=== PATIENT | female | born 1970 | race Caucasian/White ===

== ENCOUNTER 2017-08-18 14:19 | Emergency (ER) | payer OTHER ==
[~2017-08-18] VITALS: Ht 154.9 cm; Wt 88.9 kg
[~2017-08-18 14:19] MED LIST: GABAPENTIN300 M2 PO; PERCOCET 5-3251 EACH PO; PROTONIX40 M3 PO; WAL-PROFEN200 M1 PO; ZOFRAN4 M2 PO
[2017-08-18 16:36] LABS: ABSOLUTE BASOPHIL COUNT 0 /CUMM (0.0-0.2); ABSOLUTE EOSINOPHIL COUNT 0.1 /CUMM (0.0-0.7); ABSOLUTE GRANULOCYTE CT 5.7 /CUMM (1.4-6.5); ABSOLUTE LYMPH COUNT 2.9 /CUMM (1.2-3.4); ABSOLUTE MONOCYTE COUNT 0.5 /CUMM (0.10-0.60); BASOPHIL % 0.5 % (0.0-2.0); EOSINOPHIL % 0.7 % (0-5); GRANULOCYTE % 62.1 % (42.2-75.2); HEMATOCRIT 40.1 % (37-47); MEAN CORPUSCULAR HGB 28.7 PG (27.0-31.0); MEAN CORPUSCULAR HGB CONC 33.7 G/DL (33.0-37.0); MEAN CORPUSCULAR VOLUME 85.1 FL (81.0-99.0); MEAN PLATELET VOLUME 9.6 FL (7.4-10.4); PLATELET COUNT 253 /CUMM (130-400); RBC DISTRIBUTION WIDTH 13.7 % (11.5-14.5); RED BLOOD CELL CT 4.72 /CUMM (4.20-5.40); WHITE BLOOD CELL COUNT 9.2 /CUMM (4.8-10.8)
[2017-08-18 17:47] VITALS: BP 138/64
--- NOTE | 2017-08-18 19:17 | ULTRASOUND REPORT ---
EXAMINATION: US RETROPERITONEAL COMPLETE (RENAL) CLINICAL INFORMATION: Right flank pain. History of stones.. COMPARISON: Radiograph 07/24/2017. TECHNIQUE: Real-time imaging of the kidneys and bladder. FINDINGS: RIGHT KIDNEY: 11.5 x 5.5 x 5.7 cm (SAG x AP x TRV). The kidney is normal in size, contour, and echogenicity. There is renal cortical thinning. No hydronephrosis. There is a lower pole simple cyst measuring 2.6 cm. There are multiple calculi noted. The largest is seen at the midpole measuring 1.3 x 0.6 x 0.8 cm. There is a lower pole calculus measuring 0.9 cm. There is a 0.7 cm lower pole calculus. LEFT KIDNEY: 1.2 x 5.4 x 5.3 cm (SAG x AP x TRV). The kidney is normal in size, contour, and echogenicity. Renal cortical thickness is normal. No calculi or focal parenchymal lesions. No hydronephrosis. BLADDER: Well-distended and normal. Bilateral ureteral jets are demonstrated. Prevoid bladder volume is 217 mL. Postvoid bladder volume is 11 mL. IMPRESSION: No hydronephrosis. Multiple nonobstructing right renal calculi. Right renal cyst..
--- NOTE | 2017-08-18 19:22 | ED GI/GU/ABDOMINAL COMPLAINT ---
History of Present Illness General Chief Complaint: General Adult Stated Complaint: ?KIDNEY STONES,"I FEEL COLD" Source: patient Exam Limitations: no limitations Vital Signs & Intake/Output Vital Signs & Intake/Output Vital Signs Date Time Temp Pulse Resp B/P B/P Pulse O2 O2 Flow FiO2 Mean Ox Delivery Rate 08/18 1747 98.2 87 18 138/64 97 Room Air 08/18 1440 97.4 90 16 127/84 95 Room Air Allergies Coded Allergies: oxycodone (palpatations 02/24/17) Reconcile Medications Cephalexin (Keflex) 500 MG CAPSULE 1 CAP PO TID UTI Lidocaine HCl (Lidocaine HCl Viscous) 2 % SOLUTION 15 ML PO 4 TIMES/DAY PRN MOUTH PAIN SWISH AND SPIT Pantoprazole Sodium (Protonix) 40 MG TABLET.DR 1 TAB PO DAILY ABDOMINAL PAIN Triage Note: PT TO ED FOR ?FEVER AND AND R SIDED FLANK PAIN "WAITING FOR SUGERY FOR KIDNEY STONE" PT AWAKE/ALERT WITH EASY WOB. PT AFEBRILE IN TRIAGE. REPORTS "FEELING COLD" Triage Nurses Notes Reviewed? yes LMP (ages 10-50): unknown ? n Is pt currently ? No Onset: Abrupt Duration: changing over time, continues in ED Timing: recent history Quality/Severity: cramping Severity Numbers: 7 Location: right flank Radiation: back Activities at Onset: none Prior Abdominal Problems: similar symptoms Past Sexual History: Unobtainable at this time No Modifying Factors: none Modifying Factors: Worsens With: movement, palpation. Associated Symptoms: abdominal pain, nausea/vomiting HPI: 46-year-old female past medical history of nephrolithiasis presents for evaluation of pain in her right flank and nausea. Patient states that the symptoms are present for the past 3 weeks since she was diagnosed with a kidney stone on that right side. She states that she is scheduled to have a procedure to remove the stones this coming week. She states that her pain had initially been improving but worsened again today. The pain is located in the right flank radiates into the right lower back. Described as cramping. Associated with nausea. No chest pain shortness of breath no abdominal pain. No fever but she does report chills. She's not taking any medicine for this currently. Past History Travel History Traveled to [place] past 21 day No Medical History Any Pertinent Medical History? see below for history Neurological: NONE EENT: NONE Cardiovascular: NONE Respiratory: NONE Gastrointestinal: NONE Hepatic: NONE Renal: KIDNEY STONES Musculoskeletal: NEUROPATHY Psychiatric: NONE Endocrine: NONE Surgical History Surgical History: non-contributory Psychosocial History What is your primary language Bahamian Tobacco Use: Refused to answer Family History Hx Contributory? No Review of Systems Review of Systems Constitutional: Reports: no symptoms. EENTM: Reports: no symptoms. Respiratory: Reports: no symptoms. Cardiovascular: Reports: no symptoms. GI: Reports: see HPI, abdominal pain (flank pain). Genitourinary: Reports: no symptoms. Musculoskeletal: Reports: see HPI, back pain. Skin: Reports: no symptoms. Neurological/Psychological: Reports: no symptoms. Hematologic/Endocrine: Reports: no symptoms. Immunologic/Allergic: Reports: no symptoms. All Other Systems: Reviewed and Negative Physical Exam Physical Exam General Appearance: well developed/nourished, no apparent distress, alert, awake Head: atraumatic, normal appearance Eyes: Bilateral: normal appearance, PERRL, EOMI, normal inspection. Ears, Nose, Throat, Mouth: hearing grossly normal, moist mucous membrane Neck: normal inspection, supple, full range of motion Respiratory: normal breath sounds, chest non-tender, no respiratory distress, lungs clear Cardiovascular: regular rate/rhythm, normal peripheral pulses Peripheral Pulses: 2+ radial (R), 2+ radial (L) Gastrointestinal: normal bowel sounds, soft, no organomegaly, tenderness (rt flank) Back: normal inspection, normal range of motion, no vertebral tenderness, rt lower back pain to palpation. no cvat. no midline pain Extremities: normal range of motion Neurologic/Psych: no motor/sensory deficits, awake, alert, oriented x 3, normal gait Skin: intact, normal color, warm/dry Core Measures ACS in differential dx? No Sepsis Present: No Sepsis Focused Exam Completed? No Progress Differential Diagnosis: appendicitis Plan of Care: Orders Procedure Date/time Status Add-on Test (ER Only) 08/18 1922 Active COMPREHENSIVE METABOLIC PANEL 08/18 1535 Complete CBC WITHOUT DIFFERENTIAL 08/18 1535 Complete CULTURE,URINE 08/18 1458 Active URINALYSIS 08/18 1445 Complete Laboratory Tests 08/18/17 1547: Anion Gap 13, Estimated GFR > 60, BUN/Creatinine Ratio 11.3, Glucose 93, Calcium 9.7, Total Bilirubin 0.8, AST 19, ALT 27, Alkaline Phosphatase 43, Total Protein 7.8, Albumin 4.7, Globulin 3.1, Albumin/Globulin Ratio 1.5, CBC w Diff NO MAN DIFF REQ, RBC 4.72, MCV 85.1, MCH 28.7, MCHC 33.7, RDW 13.7, MPV 9.6, Gran % 62.1, Lymphocytes % 31.5, Monocytes % 5.2, Eosinophils % 0.7, Basophils % 0.5, Absolute Granulocytes 5.7, Absolute Lymphocytes 2.9, Absolute Monocytes 0.5, Absolute Eosinophils 0.1, Absolute Basophils 0 08/18/17 1458: Urine Color STRAW, Urine Clarity CLEAR, Urine pH 6.0, Ur Specific Ray <= 1.005, Urine Protein NEG, Urine Ketones NEG, Urine Nitrite NEG, Urine Bilirubin NEG, Urine Urobilinogen 0.2, Ur Leukocyte Esterase MOD H, Ur Microscopic SEDIMENT EXAMINED, Urine RBC RARE, Urine WBC 1-3 H, Urine Hemoglobin TRACE- INTACT, Urine Glucose NEG Microbiology 08/18 1458 URINE ROUT: Urine Culture - RECD Patient seen and evaluated. She is reporting chills and continued right flank pain. Urine is showing some signs of infection blood work is within normal limits. Advised patient should repeat a CT scan however she declines. She requests an ultrasound instead. Ultrasound shows similar appearance of kidney stones. She is following up with Dr. Joy this week for surgical intervention. Patient's pain is well-controlled she is tolerating fluids. She' ll be placed back on cephalexin for treatment of possible UTI/Samson. Advised rest and clear fluids continue Flomax follow-up with urology. Tylenol ibuprofen as needed for pain monitor symptoms return with any concerns Diagnostic Imaging: Viewed by Me: Ultrasound. Discussed w/RAD: Ultrasound. Radiology Impression: PATIENT: JANA BENITEZ PRESENT AGE : 46 PATIENT ACCOUNT NO: [id number] : 68 LOCATION: [facility] ORDERING PHYSICIAN: Faheem BISHOP SERVICE DATE: 08/18/17 EXAM TYPE: US - US- RENAL/KIDNEY EXAMINATION: US RETROPERITONEAL COMPLETE (RENAL) CLINICAL INFORMATION: Right flank pain. History of stones.. COMPARISON: Radiograph 2017. TECHNIQUE: Real-time imaging of the kidneys and bladder. FINDINGS: RIGHT KIDNEY: 11.5 x 5.5 x 5.7 cm (SAG x AP x TRV). The kidney is normal in size, contour, and echogenicity. There is renal cortical thinning. No hydronephrosis. There is a lower pole simple cyst measuring 2.6 cm. There are multiple calculi noted. The largest is seen at the midpole measuring 1.3 x 0.6 x 0.8 cm. There is a lower pole calculus measuring 0.9 cm. There is a 0.7 cm lower pole calculus. LEFT KIDNEY: 1.2 x 5.4 x 5.3 cm (SAG x AP x TRV). The kidney is normal in size, contour, and echogenicity. Renal cortical thickness is normal. No calculi or focal parenchymal lesions. No hydronephrosis. BLADDER: Well-distended and normal. Bilateral ureteral jets are demonstrated. Prevoid bladder volume is 217 mL. Postvoid bladder volume is 11 mL. IMPRESSION: No hydronephrosis. Multiple nonobstructing right renal calculi. Right renal cyst.. DICTATED BY: Hamilton SCHWARZ,Alex DATE/TIME DICTATED:08/18/171910 DOPE DRY HOUSE OPERATOR:TOÑITO DATE/ TIME TRANSCRIBED:08/18/171910 CONFIDENTIAL, DO NOT COPY WITHOUT APPROPRIATE AUTHORIZATION. Initial ED EKG: none Departure Departure Disposition: HOME OR SELF CARE Condition: Stable Clinical Impression Primary Impression: Renal colic on right side Referrals: Staice Ledezma DO (PCP/Family) Dejuan SCHWARZ,Leandro Prater. Additional Instructions: Take antibiotics as directed for the full course. Increase fluids. Tylenol ibuprofen as needed for pain. Viscous lidocaine to be used as needed for mouth pain. Make a follow-up with her primary care doctor and urologist Dr. Nelson soon as possible. Monitor symptoms return with any concerns. Departure Forms: Customer Survey General Discharge Information Prescriptions: Current Visit Scripts Cephalexin (Keflex) 1 CAP PO TID #21 CAP Lidocaine HCl (Lidocaine HCl Viscous) 15 ML PO 4 TIMES/DAY PRN MOUTH PAIN #100 ML SWISH AND SPIT
[2017-08-18] MEDS ORDERED: KEFLEX500 M1 PO (19:30)
[2017-08-18] MEDS ORDERED: LIDOCAINE HCL V15 ML PO (19:30)
== END 2017-08-18 19:47 ==
LOC: ERH 14:19
PROVIDERS: Physician Assistant Medical
DX: N23 Unspecified renal colic (principal)
CPT/HCPCS: 76775; 81001; 87086; 96372; J1885

== ENCOUNTER 2017-09-09 19:01 | Emergency (ER) | payer OTHER ==
[~2017-09-09] VITALS: Ht 154.9 cm; Wt 87.5 kg
[~2017-09-09 19:01] MED LIST changes: +KEFLEX500 M1 PO; +LIDOCAINE HCL V15 ML PO
--- NOTE | 2017-09-09 19:09 | ED DYSPNEA/ASTHMA COMPLAINT ---
History of Present Illness General Chief Complaint: Dyspnea (COPD, CHF, Other) Stated Complaint: DYSPNEA/CHEST TIGHTNESS Source: patient Exam Limitations: no limitations Vital Signs & Intake/Output Vital Signs & Intake/Output Vital Signs Date Time Temp Pulse Resp B/P B/P Pulse O2 O2 Flow FiO2 Mean Ox Delivery Rate 09/09 2246 98.2 107 18 119/57 96 Room Air 09/09 2052 98.0 114 18 145/67 99 Room Air 09/09 2000 97 Room Air 09/09 1907 97.9 106 18 152/97 99 Room Air Allergies Coded Allergies: oxycodone (palpatations 02/24/17) Reconcile Medications Albuterol Sulfate (Ventolin Hfa) 90 MCG HFA.AER.AD 2 PUF INH Q4-6 PRN PRN WHEEZE Cephalexin (Keflex) 500 MG CAPSULE 1 CAP PO TID UTI Lidocaine HCl (Lidocaine HCl Viscous) 2 % SOLUTION 15 ML PO 4 TIMES/DAY PRN MOUTH PAIN SWISH AND SPIT Pantoprazole Sodium (Protonix) 40 MG TABLET.DR 1 TAB PO DAILY ABDOMINAL PAIN Prednisone 50 MG TABLET 1 TAB PO DAILY BRONCHOSPASM/BREATHING ISSUES Triage Nurses Notes Reviewed? yes Onset: Gradual Duration: day(s): Timing: recent history Severity: mild, moderate Activities at Onset: none Prior Episodes/Possible Cause: no prior episodes Associated Symptoms: fatigue HPI: 46 yo woman h/o dyspnea x 2-3 days, associated with diffuse myalgia, increased fatigue, mild diarrhea intermittently, occasional right sided chest pain. She has seen her physician providers recently and is scheduled to have a breast biopsy and a kidney stone on the right taken care of. She notes no fever, chills, nausea, vomiting, headache, fever. He is otherwise well. Past History Travel History Traveled to [place] past 21 day No Medical History Any Pertinent Medical History? see below for history Neurological: NONE EENT: NONE Cardiovascular: NONE Respiratory: NONE Gastrointestinal: NONE Hepatic: NONE Renal: KIDNEY STONES Musculoskeletal: NEUROPATHY Psychiatric: NONE Endocrine: NONE Surgical History Surgical History: non-contributory Psychosocial History What is your primary language Sami Tobacco Use: Never used Family History Hx Contributory? No Review of Systems Review of Systems Constitutional: Reports: no symptoms. EENTM: Reports: no symptoms. Respiratory: Reports: no symptoms. Cardiovascular: Reports: no symptoms. GI: Reports: no symptoms. Genitourinary: Reports: no symptoms. Musculoskeletal: Reports: no symptoms. Skin: Reports: no symptoms. Neurological/Psychological: Reports: no symptoms. Hematologic/Endocrine: Reports: no symptoms. Immunologic/Allergic: Reports: no symptoms. All Other Systems: Reviewed and Negative Physical Exam Physical Exam General Appearance: well developed/nourished, no apparent distress Head: atraumatic, normal appearance Eyes: Bilateral: normal appearance. Ears, Nose, Throat: normal pharynx, normal ENT inspection Neck: normal inspection, supple, full range of motion Respiratory: mild wheeze, parasternal chest wall tenderness to palpation Cardiovascular: regular rate/rhythm Gastrointestinal: normal bowel sounds, soft, non-tender Extremities: normal inspection Neurologic/Psych: no motor/sensory deficits, awake, alert, oriented x 3 Skin: intact, normal color, warm/dry Core Measures ACS in differential dx? No CVA/TIA Diagnosis No Sepsis Present: No Sepsis Focused Exam Completed? No Progress Differential Diagnosis: asthma, bronchitis, COPD, pneumonia Plan of Care: Orders Procedure Date/time Status TROPONIN LEVEL 09/09 2116 Complete EKG 09/09 2116 Active THYROID STIMULATING HORMONE 09/09 1929 Complete TROPONIN LEVEL 09/09 1908 Complete LIPASE 09/09 1908 Complete HEPATIC FUNCTION PANEL 09/09 1908 Complete D-DIMER 09/09 1908 Complete CBC WITHOUT DIFFERENTIAL 09/09 1908 Complete BASIC METABOLIC PANEL 09/09 1908 Complete AMYLASE 09/09 1908 Complete EKG 09/09 1908 Active Laboratory Tests 09/09/17 2130: Troponin I < 0.01 09/09/17 1930: Anion Gap 16, Estimated GFR > 60, BUN/Creatinine Ratio 16.3, Glucose 109 H, Calcium 10.4 H, Total Bilirubin 0.7, Direct Bilirubin 0.4, AST 21, ALT 32, Alkaline Phosphatase 50, Troponin I < 0.01, Total Protein 7.8, Albumin 4.9, Amylase 61, Lipase 112, TSH 1.810, D-Dimer High Sensitivty < 200, CBC w Diff NO MAN DIFF REQ, RBC 4.66, MCV 84.6, MCH 28.5, MCHC 33.6, RDW 13.5, MPV 9.4, Gran % 61.8, Lymphocytes % 31.7, Monocytes % 4.6, Eosinophils % 1.3, Basophils % 0.6, Absolute Granulocytes 5.3, Absolute Lymphocytes 2.7, Absolute Monocytes 0.4, Absolute Eosinophils 0.1, Absolute Basophils 0.1 09/09/17 1923: TSH Cancelled CXR Impression: PATIENT: JANA BENITEZ PRESENT AGE: 46 PATIENT ACCOUNT NO: [id number] : 66 LOCATION: [facility] ORDERING PHYSICIAN: Keon Benz MD SERVICE DATE: 09/09/17 EXAM TYPE: RAD - XRY- PORTABLE CHEST XRAY EXAMINATION: XR PORTABLE CHEST CLINICAL INFORMATION: Chest pain. COMPARISON: None TECHNIQUE: Portable frontal view of the chest was obtained. FINDINGS: The lungs are clear. No pleural effusion. 2 wires overlie the patient. Cardiomediastinal silhouette and pulmonary vasculature are within normal limits. No acute osseous finding. IMPRESSION: No acute cardiopulmonary disease. DICTATED BY: Juan Calhoun MD DATE/TIME DICTATED:09/09/172005 PAINT LINE SUPERVISOR:TOÑITO DATE/TIME TRANSCRIBED:09/09/172005 CONFIDENTIAL, DO NOT COPY WITHOUT APPROPRIATE AUTHORIZATION. <Electronically signed in Other Vendor System> SIGNED BY: Juan Calhoun MD 09/09/172009 Initial ED EKG: LBBB, sinus lbbb, prior ekg lbbb Repeat EKG: unchanged Departure Departure Disposition: HOME OR SELF CARE Condition: Stable Clinical Impression Primary Impression: Bronchospasm Secondary Impressions: Fatigue, Viral syndrome Referrals: Stacie Ledezma DO (PCP/Family) Departure Forms: Customer Survey General Discharge Information Prescriptions: Current Visit Scripts Prednisone 1 TAB PO DAILY #5 TAB Albuterol Sulfate (Ventolin Hfa) 2 PUF INH Q4-6 PRN PRN WHEEZE #1 INHAL Ref 1 Comments 09/09/17, 22:45... pt feeling well, stable in ed... labs/ekg/trop benign... pt safe for discharge... close follow up advised Critical Care Note Critical Care Note Critical Care Time: non-applicable
[2017-09-09 19:48] LABS: ABSOLUTE BASOPHIL COUNT 0.1 /CUMM (0.0-0.2); ABSOLUTE EOSINOPHIL COUNT 0.1 /CUMM (0.0-0.7); ABSOLUTE GRANULOCYTE CT 5.3 /CUMM (1.4-6.5); ABSOLUTE LYMPH COUNT 2.7 /CUMM (1.2-3.4); ABSOLUTE MONOCYTE COUNT 0.4 /CUMM (0.10-0.60); BASOPHIL % 0.6 % (0.0-2.0); EOSINOPHIL % 1.3 % (0-5); GRANULOCYTE % 61.8 % (42.2-75.2); HEMATOCRIT 39.5 % (37-47); MEAN CORPUSCULAR HGB 28.5 PG (27.0-31.0); MEAN CORPUSCULAR HGB CONC 33.6 G/DL (33.0-37.0); MEAN CORPUSCULAR VOLUME 84.6 FL (81.0-99.0); MEAN PLATELET VOLUME 9.4 FL (7.4-10.4); PLATELET COUNT 258 /CUMM (130-400); RBC DISTRIBUTION WIDTH 13.5 % (11.5-14.5); RED BLOOD CELL CT 4.66 /CUMM (4.20-5.40); WHITE BLOOD CELL COUNT 8.6 /CUMM (4.8-10.8)
--- NOTE | 2017-09-09 20:10 | RADIOLOGY REPORT ---
EXAMINATION: XR PORTABLE CHEST CLINICAL INFORMATION: Chest pain. COMPARISON: None TECHNIQUE: Portable frontal view of the chest was obtained. FINDINGS: The lungs are clear. No pleural effusion. 2 wires overlie the patient. Cardiomediastinal silhouette and pulmonary vasculature are within normal limits. No acute osseous finding. IMPRESSION: No acute cardiopulmonary disease.
[2017-09-09] MEDS ORDERED: PREDNISONE50 M1 PO (21:19)
[2017-09-09] MEDS ORDERED: VENTOLIN HFA18 GM INH (21:19)
[2017-09-09 22:47] VITALS: BP 119/57
[2017-09-10] MEDS ORDERED: CLARITIN10 M1 PO (20:19)
== END 2017-09-09 23:06 ==
LOC: ERH 19:01
PROVIDERS: Pediatrics
DX: J98.01 Acute bronchospasm (principal); B34.9 Viral infection, unspecified; R53.83 Other fatigue; R07.9 Chest pain, unspecified
CPT/HCPCS: 1263; 71045; 93005; 93010; 96361; 96374; 96375; J1885; J2930

== ENCOUNTER 2017-09-10 19:02 | Emergency (ER) | payer OTHER ==
[~2017-09-10] VITALS: Ht 154.9 cm; Wt 87.5 kg
[~2017-09-10 19:02] MED LIST changes: +PREDNISONE50 M1 PO; +VENTOLIN HFA18 GM INH
[2017-09-10 19:08] VITALS: BP 137/80
--- NOTE | 2017-09-10 19:33 | ED GENERAL ADULT ---
History of Present Illness General Chief Complaint: General Adult Stated Complaint: "FOLLOW UP W/ ABD PAIN, BROOKS, RED FACE" Source: patient Exam Limitations: no limitations Vital Signs & Intake/Output Vital Signs & Intake/Output Vital Signs Date Time Temp Pulse Resp B/P B/P Pulse O2 O2 Flow FiO2 Mean Ox Delivery Rate 09/11 1907 97.8 103 18 137/80 99 Room Air Allergies Coded Allergies: gabapentin (BROOKS, DRY TONGUE 09/10/17) oxycodone (palpatations 02/24/17) Reconcile Medications Albuterol Sulfate (Ventolin Hfa) 90 MCG HFA.AER.AD 2 PUF INH Q4-6 PRN PRN WHEEZE Cephalexin (Keflex) 500 MG CAPSULE 1 CAP PO TID UTI Lidocaine HCl (Lidocaine HCl Viscous) 2 % SOLUTION 15 ML PO 4 TIMES/DAY PRN MOUTH PAIN SWISH AND SPIT Loratadine (Claritin) 10 MG TABLET 1 TAB PO DAILY seasonal allergies Pantoprazole Sodium (Protonix) 40 MG TABLET.DR 1 TAB PO DAILY ABDOMINAL PAIN Prednisone 50 MG TABLET 1 TAB PO DAILY BRONCHOSPASM/BREATHING ISSUES Triage Note: PT FROM HOME C/O "F/U PER DR LO" PT WAS SEEN HERE YESTERDAY IN ED. PT WAS TOOK TO COME BACK AND F/U WITH DR LO. PTS VSS. PT STATES "I THINK IM ALLERGIC TO GABAPENTIN I TOOK IT TODAY AND AGAIN I FELT FLUSHED IN MY FACE, BROOKS, AND DRY MOUTH" Triage Nurses Notes Reviewed? yes Onset: Gradual Duration: hour(s): Timing: recent history Injury Environment: home Severity: mild Modifying Factors: Improves With: rest. Associated Symptoms: dry mouth HPI: 46 yo woman here for follow up from last night where she had a constellation of symptoms. She reports that she has been feeling well, without chest pain, dyspnea, dizziness. She notes that this evening, she took neurontin for her chronic lower back pain. She then developed a dry mouth and her face felt flushed. She is now feeling better. She notes also that with the spring, she has had intermittent runny nose and red face. She would like a medicine to help with this. She is otherwise well. Past History Travel History Traveled to [place] past 21 day No Medical History Any Pertinent Medical History? see below for history Neurological: NONE EENT: NONE Cardiovascular: NONE Respiratory: NONE Gastrointestinal: NONE Hepatic: NONE Renal: KIDNEY STONES Musculoskeletal: NEUROPATHY Psychiatric: NONE Endocrine: NONE Surgical History Surgical History: non-contributory Psychosocial History What is your primary language [place] Tobacco Use: Never used Family History Hx Contributory? No Review of Systems Review of Systems Constitutional: Reports: no symptoms. EENTM: Reports: no symptoms. Respiratory: Reports: no symptoms. Cardiovascular: Reports: no symptoms. GI: Reports: no symptoms. Genitourinary: Reports: no symptoms. Musculoskeletal: Reports: no symptoms. Skin: Reports: no symptoms. Neurological/Psychological: Reports: no symptoms. Hematologic/Endocrine: Reports: no symptoms. Immunologic/Allergic: Reports: no symptoms. All Other Systems: Reviewed and Negative Physical Exam Physical Exam General Appearance: well developed/nourished, no apparent distress, alert, comfortable Head: atraumatic, normal appearance Eyes: Bilateral: normal appearance. Ears, Nose, Throat: normal pharynx, normal ENT inspection Neck: normal inspection, supple, full range of motion Respiratory: normal breath sounds, chest non-tender, no respiratory distress, quiet respiration, lungs clear Cardiovascular: regular rate/rhythm Gastrointestinal: normal bowel sounds, soft, non-tender, no organomegaly Back: normal inspection, normal range of motion Extremities: normal inspection, normal capillary refill, normal range of motion, no edema Neurologic/Psych: no motor/sensory deficits, awake, alert, oriented x 3 Skin: intact, normal color, warm/dry Core Measures ACS in differential dx? No CVA/TIA Diagnosis: No Sepsis Present: No Sepsis Focused Exam Completed? No Progress Differential Diagnoses I considered the following diagnoses in my evaluation of the patient: medication side effect vs seasonal allergies vs other. Plan of Care: discussed at length, reviewed prior labs and imaging... pt is feeling better... I advised her to cease the neurontin, try claritin for seasonal allergies and follow up with her doctor tomorrow. Initial ED EKG: none Departure Departure Disposition: HOME OR SELF CARE Condition: Stable Clinical Impression Primary Impression: Medication side effects Secondary Impressions: Seasonal allergies Referrals: Stacie Ledezma DO (PCP/Family) Departure Forms: Customer Survey General Discharge Information Prescriptions: Current Visit Scripts Loratadine (Claritin) 1 TAB PO DAILY #30 TAB Critical Care Note Critical Care Note Critical Care Time: non-applicable
[2017-09-10] MEDS ORDERED: CLARITIN10 M1 PO (20:19)
== END 2017-09-10 20:24 ==
LOC: ERH 19:02
DX: T42.75XA Adverse effect of unspecified antiepileptic and sedative-hypnotic drugs, initial encounter (principal); J30.2 Other seasonal allergic rhinitis

== ENCOUNTER 2017-09-14 18:20 | Emergency (ER) | payer OTHER ==
[~2017-09-14 18:20] MED LIST changes: +CLARITIN10 M1 PO
[2017-09-14 19:33] LABS: ABSOLUTE BASOPHIL COUNT 0 /CUMM (0.0-0.2); ABSOLUTE EOSINOPHIL COUNT 0 /CUMM (0.0-0.7); ABSOLUTE GRANULOCYTE CT 6.8 /CUMM (1.4-6.5); ABSOLUTE LYMPH COUNT 2.2 /CUMM (1.2-3.4); ABSOLUTE MONOCYTE COUNT 0.4 /CUMM (0.10-0.60); BASOPHIL % 0.5 % (0.0-2.0); EOSINOPHIL % 0.5 % (0-5); HEMATOCRIT 39.6 % (37-47); MEAN CORPUSCULAR HGB 28.5 PG (27.0-31.0); MEAN CORPUSCULAR HGB CONC 33.5 G/DL (33.0-37.0); MEAN CORPUSCULAR VOLUME 84.9 FL (81.0-99.0); MEAN PLATELET VOLUME 9.2 FL (7.4-10.4); PLATELET COUNT 277 /CUMM (130-400); RBC DISTRIBUTION WIDTH 13.6 % (11.5-14.5); RED BLOOD CELL CT 4.66 /CUMM (4.20-5.40); WHITE BLOOD CELL COUNT 9.5 /CUMM (4.8-10.8)
--- NOTE | 2017-09-14 20:28 | ED GI/GU/ABDOMINAL COMPLAINT ---
History of Present Illness General Chief Complaint: General Adult Stated Complaint: MULTIPLE COMPLAINTS? Source: patient, family, old records Exam Limitations: language barrier Vital Signs & Intake/Output Vital Signs & Intake/Output Vital Signs Date Time Temp Pulse Resp B/P B/P Pulse O2 O2 Flow FiO2 Mean Ox Delivery Rate 09/15 2047 97.8 88 16 134/76 97 Room Air 09/15 1855 97.6 103 16 136/81 99 Room Air Allergies Coded Allergies: gabapentin (BROOKS, DRY TONGUE 09/10/17) oxycodone (palpatations 02/24/17) Reconcile Medications Albuterol Sulfate (Ventolin Hfa) 90 MCG HFA.AER.AD 2 PUF INH Q4-6 PRN PRN WHEEZE Cephalexin (Keflex) 500 MG CAPSULE 1 CAP PO TID UTI Lidocaine HCl (Lidocaine HCl Viscous) 2 % SOLUTION 15 ML PO 4 TIMES/DAY PRN MOUTH PAIN SWISH AND SPIT Loratadine (Claritin) 10 MG TABLET 1 TAB PO DAILY seasonal allergies [MAGIC MOUTHWASH] 10 ML PO TID PRN ESOPHAGITIS 1:1:1 EQUAL PARTS SWISH AND SWALLOW Pantoprazole Sodium (Protonix) 40 MG TABLET.DR 1 TAB PO DAILY ABDOMINAL PAIN Prednisone 50 MG TABLET 1 TAB PO DAILY BRONCHOSPASM/BREATHING ISSUES Triage Note: PT RETURNS TO ED WITH C/O MID ABD PAIN. REPORTS SHE BELIEVES IT MAY BE GAS OR GERD. DENIES NV. C/O PAIN IN EPIGASTRIC AREA. Triage Nurses Notes Reviewed? yes ? N Is pt currently ? No Duration: constant Timing: recent history Quality/Severity: moderate Severity Numbers: 5 Location: epigastric Radiation: no radiation Activities at Onset: none Prior Abdominal Problems: similar symptoms HPI: Patient is a 46-year-old female who presents emergency room with a two-week complaint of substernal burning and epigastric pain which she was then evaluated on multiple occasions with [facility] urgent care facility for similar complaints. Patient is able tolerate by mouth upon with no change in symptoms. Patient is complaining of burning sensation in her throat. Denies any fever chills arm pain jaw pain nausea vomiting dysuria and hematuria back pain Patient denies any alcohol and NSAIDs use Last bowel movement was within last 24 hours no blood no melena Patient currently is taking pantoprazole prescribed yesterday (Narendra De Jesus) Past History Travel History Traveled to [place] past 21 day No Medical History Any Pertinent Medical History? see below for history Neurological: NONE EENT: NONE Cardiovascular: NONE Respiratory: NONE Gastrointestinal: NONE Hepatic: NONE Renal: KIDNEY STONES Musculoskeletal: NEUROPATHY Psychiatric: NONE Endocrine: NONE Surgical History Surgical History: non-contributory Psychosocial History What is your primary language Malian Tobacco Use: Never used Family History Hx Contributory? No (Narendra De Jesus) Review of Systems Review of Systems Constitutional: Reports: no symptoms. EENTM: Reports: no symptoms. Respiratory: Reports: see HPI. Cardiovascular: Reports: see HPI. GI: Reports: no symptoms. Genitourinary: Reports: no symptoms. Musculoskeletal: Reports: no symptoms. Skin: Reports: no symptoms. Neurological/Psychological: Reports: no symptoms. Hematologic/Endocrine: Reports: no symptoms. Immunologic/Allergic: Reports: no symptoms. All Other Systems: Reviewed and Negative (Narendra De Jesus) Physical Exam Physical Exam General Appearance: no apparent distress, alert, comfortable Head: atraumatic Eyes: Bilateral: normal appearance. Ears, Nose, Throat, Mouth: hearing grossly normal, moist mucous membrane Neck: normal inspection, full range of motion Respiratory: normal breath sounds, chest non-tender, no respiratory distress Cardiovascular: tachycardia Gastrointestinal: normal bowel sounds, soft, non-tender, no organomegaly Extremities: normal range of motion Neurologic/Psych: no motor/sensory deficits Skin: intact, normal color Core Measures ACS in differential dx? Yes Sepsis Present: No Sepsis Focused Exam Completed? No (Narendra De Jesus) Progress Differential Diagnosis: AAA, AMI, appendicitis, biliary colic, bowel obstruction , colon cancer, cholecystitis, diverticulitis, esophageal varices, gastritis, hepatitis, inflamm bowel dis, kidney stone, Rae-Blas tear, ovarian cyst, ovarian torsion, pancreatitis, PID/cervicitis, peptic ulcer, PUD/GERD, perforated viscous, SBO, threatened AB, UTI/pyelo Plan of Care: Orders Procedure Date/time Status URINALYSIS 09/14 1902 Complete TROPONIN LEVEL 09/14 1902 Complete LIPASE 09/14 1902 Complete D-DIMER 09/14 1902 Complete DIRECT BILIRUBIN 09/14 1902 Complete COMPREHENSIVE METABOLIC PANEL 09/14 1902 Complete CBC WITHOUT DIFFERENTIAL 09/14 1902 Complete AMYLASE 09/14 1902 Complete EKG 09/14 1902 Active Laboratory Tests 09/14/17 1925: Urine Color YEL, Urine Clarity CLEAR, Urine pH 6.5, Ur Specific [place] <= 1.005 , Urine Protein NEG, Urine Ketones NEG, Urine Nitrite NEG, Urine Bilirubin NEG, Urine Urobilinogen 0.2, Ur Leukocyte Esterase TRACE H, Ur Microscopic SEDIMENT EXAMINED, Urine WBC 1-3 H, Urine Hemoglobin NEG, Urine Glucose NEG 09/14/171917: Anion Gap 14, Estimated GFR > 60, BUN/Creatinine Ratio 16.7, Glucose 109 H, Calcium 10.6 H, Total Bilirubin 0.5, Direct Bilirubin 0.3, AST 17, ALT 32, Alkaline Phosphatase 50, Troponin I < 0.01, Total Protein 7.4, Albumin 4.8, Globulin 2.6, Albumin/Globulin Ratio 1.8, Amylase 70, Lipase 134, D-Dimer High Sensitivty < 200, CBC w Diff NO MAN DIFF REQ, RBC 4.66, MCV 84.9, MCH 28.5, MCHC 33.5, RDW 13.6, MPV 9.2, Gran % 71.0, Lymphocytes % 23.3, Monocytes % 4.7, Eosinophils % 0.5, Basophils % 0.5, Absolute Granulocytes 6.8 H, Absolute Lymphocytes 2.2, Absolute Monocytes 0.4, Absolute Eosinophils 0, Absolute Basophils 0 Patient on initial examination was significant Bedside No Apparent Distress Patient Has Nontender Abdomen Afebrile Patient's EKG Blood Work Troponin Was Unremarkable D-Dimer No Concerns of Pulmonary Embolism. Patient Was Given GI Cocktail Which Significantly Improved Patient's Symptoms, DUE TO History of Present Illness and Exam Findings Patient Has Concerns of GERD or Dyspepsia. Patient Was Strongly Advised to Follow-Up with Discharge Instructions and Plan. Initial ED EKG: normal QRS complex, SINUS TACHYCARIA 104 BPM (Narendra De Jesus) Departure Departure Disposition: HOME OR SELF CARE Condition: Stable Clinical Impression Primary Impression: Dyspepsia Secondary Impressions: Esophagitis Referrals: Stacie Ledezma DO (PCP/Family) Raymond Castillo MD Additional Instructions: As discussed please avoid spicy foods chocolate or caffeine or lying on year back after eating meals. 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 If symptoms worsen return to emergency room. Avoid NSAIDs such as ibuprofen and Advil as this may worsen YOUR symptoms Departure Forms: Customer Survey General Discharge Information Prescriptions: Current Visit Scripts [MAGIC MOUTHWASH] 10 ML PO TID PRN ESOPHAGITIS #100 ML 1:1:1 EQUAL PARTS SWISH AND SWALLOW (Zaria BISHOP,Narendra) PA/[employer] Co-Sign Statement Statement: ED Attending supervision documentation- I saw and evaluated the patient. I have also reviewed all the pertinent lab results and diagnostic results. I agree with the findings and the plan of care as documented in the PA's/[employer]'s documentation. x I have reviewed the ED Record and agree with the PA's/[employer]'s documentation. [] Additions or exceptions (if any) to the PAs/[employer]'s note and plan are summarized below: [] (Una SCHWARZ,Jamaal)
[2017-09-14] MEDS ORDERED: MAGIC MOUTHWASH PO (20:35)
[2017-09-14 20:48] VITALS: BP 134/76
== END 2017-09-14 20:49 ==
LOC: ERH 18:20
PROVIDERS: Physician Assistant
DX: R10.13 Epigastric pain (principal); K20.9 Esophagitis, unspecified
CPT/HCPCS: 81001; 93005; 93010